=== PATIENT | female | born 2000 | race Caucasian/White ===

== ENCOUNTER 2023-12-29 16:36 | Emergency (ER) | payer MEDICAID ==
[~2023-12-29] VITALS: Ht 165.1 cm; Wt 55.8 kg
[2023-12-29 16:37] VITALS: BP 102/72; PULSE 83; O2SAT 100
[2023-12-29 16:48] VITALS: RESP 16
[2023-12-29 17:35] LABS: BASOPHILS # (AUTO) 0.1 X10'3 (0-0.2); BASOPHILS % (AUTO) 0.9 % (0-1); EOSINOPHILS # (AUTO) 0.2 X10'3 (0-0.9); EOSINOPHILS % (AUTO) 3.9 % (0-6); HEMATOCRIT 40.1 % (35.0-45.0); HEMOGLOBIN 13.2 g/dl (12.0-16.0); LYMPHOCYTES # (AUTO) 1.3 X10'3 (1.1-4.8); MEAN CORPUSCULAR HEMOGLOBIN 29.4 PG (27.0-31.0); MEAN PLATELET VOLUME 8.3 FL (7.4-10.4); MONOCYTES # (AUTO) 0.7 X10'3 (0-0.9); NEUTROPHILS # (AUTO) 3.8 X10'3 (1.8-7.7); NEUTROPHILS % (AUTO) 62.2 % (42-75); PLATELET COUNT 270 X10'3 (140-440); WHITE BLOOD COUNT 6.1 X10'3 (4.5-11.0)
[2023-12-29 18:00] LABS: MONOTEST NEGATIVE (Neg)
[2023-12-29 18:38] LABS: STREP A SCREEN NEGATIVE (Neg)
[2023-12-29 19:24] VITALS: TEMP 98.1
== END 2023-12-29 18:58 | disposition home or self-care (01) ==
LOC: ER 16:37
DX: J20.9 Acute bronchitis, unspecified (principal)
CPT/HCPCS: 36415; 71045; 85025; 86308; 87081; 87880; 99284

== ENCOUNTER 2024-01-14 13:44 | Emergency (ER) | payer MEDICAID ==
[~2024-01-14] VITALS: Ht 165.1 cm; Wt 57.7 kg
[2024-01-14 13:54] VITALS: BP 106/64; PULSE 65; O2SAT 100
[2024-01-14] MEDS: dexamethasone sod phosphate 10mg/ml inj PO STA (14:30)
[2024-01-14] MEDS ORDERED: CEFD300C3 PO (14:30)
[2024-01-14 14:33] VITALS: RESP 16; TEMP 98.1
== END 2024-01-14 14:35 | disposition home or self-care (01) ==
LOC: ER 13:45
DX: J03.90 Acute tonsillitis, unspecified (principal)
CPT/HCPCS: 99283; J1100

== ENCOUNTER 2024-01-18 17:16 | Emergency (ER) | payer MEDICAID ==
[~2024-01-18] VITALS: Ht 165.1 cm; Wt 56.0 kg
[~2024-01-18 17:16] MED LIST: CEFD300C3 PO
[2024-01-18 17:21] VITALS: BP 108/66; PULSE 62; RESP 16; TEMP 98.1; O2SAT 100
== END 2024-01-18 18:11 | disposition left against medical advice (07) ==
LOC: ER 17:17
DX: N89.8 Other specified noninflammatory disorders of vagina (principal); Z53.21 Procedure and treatment not carried out due to patient leaving prior to being seen by health care provider